=== PATIENT | female | born 1990 | race Caucasian/White ===

== ENCOUNTER 2016-12-31 21:51 | Outpatient (CLI) | payer OTHER | END 2016-12-31 23:28 | disposition home or self-care (01) | LOC: GENOP 21:51 | DX: O36.8130 Decreased fetal movements, third trimester, not applicable or unspecified (principal); O26.893 Other specified pregnancy related conditions, third trimester; R10.9 Unspecified abdominal pain; Z3A.31 31 weeks gestation of pregnancy | CPT/HCPCS: 81001; G0463 ==

== ENCOUNTER 2017-03-04 05:15 | Inpatient (IN) | payer OTHER ==
[~2017-03-04] VITALS: Ht 165.1 cm; Wt 98.9 kg
[2017-03-04 06:51] LABS: HEMOGLOBIN 12.4 gm/dl (12.3-15.3); RED BLOOD COUNT 3.87 M/UL (4.00-5.10); WHITE BLOOD COUNT 9.7 K/UL (4.5-11.0)
[2017-03-05 04:21] LABS: HEMOGLOBIN 11.6 gm/dl (12.3-15.3)
[2017-03-05] MEDS ORDERED: COLACE 100MG C100 MG PO (11:44)
== END 2017-03-05 16:31 | disposition home or self-care (01) | DRG 775 ==
LOC: OB 05:15
PROVIDERS: Obstetrics & Gynecology; ADMIT Obstetrics & Gynecology
PROC: 10907ZC Drainage of Amniotic Fluid, Therapeutic from Products of Conception, Via Natural or Artificial Opening (ICD-10-PCS; principal; 2017-03-04)
PROC: 10E0XZZ Delivery of Products of Conception, External Approach (ICD-10-PCS; 2017-03-04)
DX: O12.04 Gestational edema, complicating childbirth (principal); Z3A.40 40 weeks gestation of pregnancy; Z37.0 Single live birth; O48.0 Post-term pregnancy; O77.0 Labor and delivery complicated by meconium in amniotic fluid
CPT/HCPCS: 36415; 51702; 81001; 82800; 85014; 85018; 85025; 90715; J2590; J2795; J3010; J3430; J7120

== ENCOUNTER 2021-08-17 19:39 | Emergency (ER) | payer OTHER ==
[~2021-08-17 19:39] MED LIST: COLACE 100MG C100 MG PO; TRAMADOL HCL50 MG PO; ZOFRAN 4 MG TAB4 MG PO
[2021-08-17 20:23] LABS: HEMOGLOBIN 12.8 gm/dl (12.3-15.3); RED BLOOD COUNT 3.97 M/UL (4.00-5.10); WHITE BLOOD COUNT 11.9 K/UL (4.5-11.0)
[2021-08-17 20:55] LABS: BUN/CREATININE RATIO 13 (0-10)
== END 2021-08-17 21:40 | disposition home or self-care (01) ==
LOC: ER1 19:39
PROVIDERS: Emergency Medicine
DX: O99.891 Other specified diseases and conditions complicating pregnancy (principal); R51.9 Headache, unspecified; Z3A.27 27 weeks gestation of pregnancy
CPT/HCPCS: 80053; 82550; 82553; 83874; 83880; 84484; 85025; 93005; 99284; J7030

== ENCOUNTER 2021-10-19 16:37 | Emergency (ER) | payer OTHER | END 2021-10-19 18:17 | disposition home or self-care (01) | LOC: ER1 16:37 | DX: O9A.213 Injury, poisoning and certain other consequences of external causes complicating pregnancy, third trimester (principal); S83.004A Unspecified dislocation of right patella, initial encounter; X58.XXXA Exposure to other specified factors, initial encounter; Y93.79 Activity, other specified sports and athletics | CPT/HCPCS: 73564; 99283 ==

== ENCOUNTER 2021-11-03 10:31 | Inpatient (IN) | payer OTHER ==
[~2021-11-03] VITALS: Ht 165.1 cm; Wt 104.3 kg
[2021-11-03 11:17] LABS: HEMOGLOBIN 11.7 gm/dl (12.3-15.3); RED BLOOD COUNT 3.86 M/UL (4.00-5.10); WHITE BLOOD COUNT 8.4 K/UL (4.5-11.0)
[2021-11-03 11:34] LABS: BUN/CREATININE RATIO 17 (0-10)
[2021-11-03] MEDS ORDERED: PRENATAL VITAM1 EAC3 PO (12:39)
[2021-11-04] MEDS ORDERED: PERCOCET 5/325 T1 EA PO (18:43)
[2021-11-04] MEDS ORDERED: IBUPROFEN800 MG PO (18:43)
[2021-11-04] MEDS ORDERED: COLACE100 MG PO (18:43)
[2021-11-04] MEDS ORDERED: HEMOCYTE324 MG PO (18:43)
[2021-11-05 05:20] LABS: HEMOGLOBIN 9.9 gm/dl (12.3-15.3)
== END 2021-11-06 15:38 | disposition home or self-care (01) | DRG 788 ==
LOC: GENOP 10:31 → OB 12:37
PROVIDERS: Obstetrics & Gynecology; ADMIT Obstetrics & Gynecology
PROC: 10907ZC Drainage of Amniotic Fluid, Therapeutic from Products of Conception, Via Natural or Artificial Opening (ICD-10-PCS; 2021-11-04)
PROC: 3E033VJ Introduction of Other Hormone into Peripheral Vein, Percutaneous Approach (ICD-10-PCS; 2021-11-04)
PROC: 4A1H7CZ Monitoring of Products of Conception, Cardiac Rate, Via Natural or Artificial Opening (ICD-10-PCS; 2021-11-04)
PROC: 10H073Z Insertion of Monitoring Electrode into Products of Conception, Via Natural or Artificial Opening (ICD-10-PCS; 2021-11-04)
PROC: 10H07YZ Insertion of Other Device into Products of Conception, Via Natural or Artificial Opening (ICD-10-PCS; 2021-11-04)
PROC: 3E0234Z Introduction of Serum, Toxoid and Vaccine into Muscle, Percutaneous Approach (ICD-10-PCS; 2021-11-04)
PROC: 10D00Z1 Extraction of Products of Conception, Low, Open Approach (ICD-10-PCS; principal; 2021-11-04 17:54)
DX: O13.4 Gestational [pregnancy-induced] hypertension without significant proteinuria, complicating childbirth (principal); O76 Abnormality in fetal heart rate and rhythm complicating labor and delivery; O99.344 Other mental disorders complicating childbirth; O61.9 Failed induction of labor, unspecified; F41.9 Anxiety disorder, unspecified; F32.A Depression, unspecified; O99.52 Diseases of the respiratory system complicating childbirth; J45.909 Unspecified asthma, uncomplicated; Z37.0 Single live birth; Z3A.38 38 weeks gestation of pregnancy; Z23 Encounter for immunization
CPT/HCPCS: 36415; 80053; 81001; 82570; 82800; 84156; 84550; 85014; 85018; 85025; 90471; 90715; C9113; J0690; J1885; J2210; J2274; J2370; J2405; J2590; J2795; J7120; U0002

== ENCOUNTER → 2022-02-26 | Outpatient (CLI) | payer OTHER ==
[~2022-02-26] MED LIST changes: +ADIPEX-P37.5 M1 PO; +COLACE100 MG PO; +HEMOCYTE324 MG PO; +IBUPROFEN800 MG PO; +PERCOCET 5/325 T1 EA PO; +PRENATAL VITAM1 EAC3 PO
[2022-02-26 09:37] LABS: HEMOGLOBIN 14.1 gm/dl (12.3-15.3); RED BLOOD COUNT 4.66 M/UL (4.00-5.10); WHITE BLOOD COUNT 7.3 K/UL (4.5-11.0)
== END ==
LOC: OPSV2 08:00
PROVIDERS: Obstetrics & Gynecology
DX: Z01.812 Encounter for preprocedural laboratory examination (principal); N36.8 Other specified disorders of urethra
CPT/HCPCS: 36415; 85025

== ENCOUNTER → 2022-03-03 | Day surgery (SDC) | payer OTHER ==
[~2022-03-03] MED LIST changes: +HYDROCODON-ACE1 EAC2 PO; +NAPROSYN500 MG PO; +PYRIDIUM200 MG PO
== END | disposition home or self-care (01) ==
LOC: OR 06:18
DX: N36.8 Other specified disorders of urethra (principal); F41.1 Generalized anxiety disorder; F32.A Depression, unspecified; Z20.822 Contact with and (suspected) exposure to COVID-19
CPT/HCPCS: 84702; C1769; J0690; J1100; J1885; J2001; J2250; J2405; J2704; J2795; J3010; J7120